=== PATIENT | female | born 1940 | race Caucasian/White ===

== ENCOUNTER 2017-05-31 08:00 | Outpatient (CLI) | payer MEDICARE, OTHER ==
[2017-05-31 13:16] LABS: ALBUMIN 4.3 g/dL (3.2-5.5); ALBUMIN/GLOBULIN RATIO 1.2 (1.0-2.2); ALKALINE PHOSPHATASE 77 IU/L (42-121); ALT ALANINE AMINOTRANSFERASE 22 IU/L (10-60); AST ASPARTATE AMINOTRANSFERASE 30 IU/L (10-42); BILIRUBIN,TOTAL 0.7 mg/dL (0.2-1.0); BUN - BLOOD UREA NITROGEN 18 mg/dL (6-20); CARBON DIOXIDE - CO2 27 mmol/L (21-32); CHLORIDE 105 mmol/L (101-111); CHOL/HDL RATIO 3.3 (<4.4); CHOLESTEROL 211 mg/dL; CREATININE 0.7 mg/dL (0.4-1.0); GFR - MDRD 81 (>89); GLUCOSE 98 mg/dL (70-100); HDL CHOLESTEROL 64 mg/dL; LDL CHOLESTEROL,CALCULATED 119 mg/dL; LDL/HDL RATIO 1.9 (<4.4); SODIUM 140 mmol/L (135-145); TOTAL PROTEIN 7.8 g/dL (6.7-8.2); VLDL CHOLESTEROL 28 mg/dL
== END 2017-05-31 08:01 | disposition home or self-care (01) ==
LOC: LAB.WCP 08:00
PROVIDERS: ATTEND Family Medicine
DX: E78.5 Hyperlipidemia, unspecified (principal); E03.9 Hypothyroidism, unspecified
CPT/HCPCS: 36415; 80053; 80061; 83721; 84443

== ENCOUNTER 2017-07-10 08:00 | Outpatient (CLI) | payer MEDICARE, OTHER ==
[2017-07-10 19:26] LABS: THYROID STIMULATING HORMONE 4.12 uIU/mL (0.34-5.60)
[2017-07-10 19:27] LABS: FREE T4 (FREE THYROXINE) 1.03 ng/dL (0.58-1.64)
[2017-07-11 12:00] LABS: CALCIUM 9.1 mg/dL (8.5-10.3); CREATININE 0.7 mg/dL (0.4-1.0)
== END 2017-07-10 08:01 | disposition home or self-care (01) ==
LOC: LAB.WCP 08:00
PROVIDERS: ATTEND Family Medicine
DX: E03.9 Hypothyroidism, unspecified (principal); I10 Essential (primary) hypertension
CPT/HCPCS: 36415; 80048; 84439; 84443; 84481

== ENCOUNTER 2017-08-29 08:00 | Outpatient (CLI) | payer MEDICARE, OTHER ==
[2017-08-29 19:06] LABS: BASOPHILS # (AUTO) 0.1 10^3/uL (0.0-0.1); BASOPHILS % (AUTO) 0.8 %; EOSINOPHILS # (AUTO) 0.1 10^3/uL (0.0-0.7); EOSINOPHILS % (AUTO) 1.8 %; HGB - HEMOGLOBIN 12.8 g/dL (12.0-16.0); LYMPHOCYTES # (AUTO) 2.2 10^3/uL (1.5-3.5); LYMPHOCYTES % (AUTO) 33.8 %; MEAN CORPUSCULAR HEMOGLOBIN 29.9 pg (27.0-31.0); MEAN CORPUSCULAR HGB CONC 32.6 g/dL (32.0-36.0); MEAN CORPUSCULAR VOLUME 91.6 fL (81.0-99.0); MEAN PLATELET VOLUME 9.8 fL (7.9-10.8); MONOCYTES # (AUTO) 0.6 10^3/uL (0.0-1.0); MONOCYTES % (AUTO) 8.6 %; NEUTROPHILS # (AUTO) 3.5 10^3/uL (1.5-6.6); PLT - PLATELET COUNT 186 10^3/uL (130-450); RED BLOOD COUNT 4.28 10^6/uL (4.20-5.40); RED CELL DISTRIBUTION WIDTH 14.1 % (12.0-15.0); WHITE BLOOD COUNT 6.4 x10^3/uL (4.8-10.8)
[2017-08-29 19:16] LABS: BILIRUBIN,URINE NEGATIVE (NEGATIVE); GLUCOSE, URINE (UA) NEGATIVE (NEGATIVE); KETONES,URINE (UA) NEGATIVE (NEGATIVE); LEUKOCYTE ESTERASE, URINE NEGATIVE (NEGATIVE); NITRITE,URINE NEGATIVE (NEGATIVE); OCCULT BLOOD,URINE NEGATIVE (NEGATIVE); PROTEIN,URINE NEGATIVE (NEGATIVE); UROBILINOGEN,URINE 0.2 (NORMAL) E.U./dL (NORMAL)
[2017-08-29 19:19] LABS: CLARITY,URINE CLEAR (CLEAR)
[2017-08-29 19:52] LABS: BACTERIA,URINE Rare /HPF (None Seen); RBC,URINE 0-5 /HPF (0-5); SQUAMOUS EPITHELIAL CELL,UR MOD Squamous (<= Few)
== END 2017-08-29 08:01 ==
LOC: LAB.WCP 08:00
PROVIDERS: ATTEND Internal Medicine Rheumatology
DX: M35.9 Systemic involvement of connective tissue, unspecified (principal); M06.4 Inflammatory polyarthropathy
CPT/HCPCS: 36415; 81001; 85025; 85651; 86140

== ENCOUNTER 2018-08-27 10:47 | Outpatient (CLI) | payer MEDICARE, OTHER ==
[2018-08-27 18:58] LABS: BASOPHILS % (AUTO) 0.9 %; EOSINOPHILS # (AUTO) 0.1 10^3/uL (0.0-0.7); EOSINOPHILS % (AUTO) 2.6 %; HGB - HEMOGLOBIN 13.1 g/dL (12.0-16.0); LYMPHOCYTES # (AUTO) 1.9 10^3/uL (1.5-3.5); LYMPHOCYTES % (AUTO) 36.3 %; MEAN CORPUSCULAR HEMOGLOBIN 30.5 pg (27.0-31.0); MEAN CORPUSCULAR HGB CONC 33.1 g/dL (32.0-36.0); MEAN PLATELET VOLUME 9.5 fL (7.9-10.8); MONOCYTES # (AUTO) 0.5 10^3/uL (0.0-1.0); MONOCYTES % (AUTO) 9.1 %; NEUTROPHILS # (AUTO) 2.7 10^3/uL (1.5-6.6); NEUTROPHILS % (AUTO) 51.1 %; PLT - PLATELET COUNT 217 10^3/uL (130-450); RED BLOOD COUNT 4.29 10^6/uL (4.20-5.40); RED CELL DISTRIBUTION WIDTH 14.5 % (12.0-15.0); WHITE BLOOD COUNT 5.2 x10^3/uL (4.8-10.8)
[2018-08-27 19:21] LABS: ALBUMIN 4.2 g/dL (3.2-5.5); ALBUMIN/GLOBULIN RATIO 1.6 (1.0-2.2); ALKALINE PHOSPHATASE 54 IU/L (42-121); ALT ALANINE AMINOTRANSFERASE 15 IU/L (10-60); AST ASPARTATE AMINOTRANSFERASE 27 IU/L (10-42); BILIRUBIN,TOTAL 0.8 mg/dL (0.2-1.0); BUN - BLOOD UREA NITROGEN 14 mg/dL (6-20); CARBON DIOXIDE - CO2 25 mmol/L (21-32); CHLORIDE 99 mmol/L (101-111); CHOL/HDL RATIO 3.4 (<4.4); CHOLESTEROL 196 mg/dL; CREATININE 0.7 mg/dL (0.4-1.0); GFR - MDRD 81 (>89); GLUCOSE 98 mg/dL (70-100); HDL CHOLESTEROL 58 mg/dL; LDL CHOLESTEROL,CALCULATED 118 mg/dL; SODIUM 137 mmol/L (135-145); TOTAL PROTEIN 6.9 g/dL (6.7-8.2); VLDL CHOLESTEROL 20 mg/dL
[2018-08-27 19:26] LABS: HB2 TOTAL 13.3 g/dL; HEMOGLOBIN A1C 0.44 g/dL; HEMOGLOBIN A1C % 5.2 % (4.6-6.2)
== END 2018-08-27 10:48 | disposition home or self-care (01) ==
LOC: LAB.WCP 10:47
PROVIDERS: ATTEND Family Medicine
DX: I10 Essential (primary) hypertension (principal); R73.09 Other abnormal glucose; E78.5 Hyperlipidemia, unspecified; E03.9 Hypothyroidism, unspecified
CPT/HCPCS: 36415; 80053; 80061; 83036; 83721; 84443; 85025

== ENCOUNTER 2018-10-15 08:00 | Outpatient (CLI) | payer MEDICARE, OTHER ==
[2018-10-15 18:59] LABS: BASOPHILS # (AUTO) 0.1 10^3/uL (0.0-0.1); BASOPHILS % (AUTO) 1.2 %; EOSINOPHILS # (AUTO) 0.2 10^3/uL (0.0-0.7); EOSINOPHILS % (AUTO) 3.9 %; HGB - HEMOGLOBIN 12.5 g/dL (12.0-16.0); LYMPHOCYTES # (AUTO) 1.6 10^3/uL (1.5-3.5); LYMPHOCYTES % (AUTO) 28.2 %; MEAN CORPUSCULAR HEMOGLOBIN 30.4 pg (27.0-31.0); MEAN CORPUSCULAR HGB CONC 31.6 g/dL (32.0-36.0); MEAN CORPUSCULAR VOLUME 96.4 fL (81.0-99.0); MEAN PLATELET VOLUME 11.7 fL (7.9-10.8); MONOCYTES # (AUTO) 0.5 10^3/uL (0.0-1.0); MONOCYTES % (AUTO) 8.4 %; NEUTROPHILS # (AUTO) 3.3 10^3/uL (1.5-6.6); NEUTROPHILS % (AUTO) 57.8 %; PLT - PLATELET COUNT 184 10^3/uL (130-450); RED BLOOD COUNT 4.11 10^6/uL (4.20-5.40); RED CELL DISTRIBUTION WIDTH 13.7 % (12.0-15.0); WHITE BLOOD COUNT 5.7 x10^3/uL (4.8-10.8)
[2018-10-15 19:27] LABS: ALBUMIN 4.2 g/dL (3.2-5.5); ALBUMIN/GLOBULIN RATIO 1.4 (1.0-2.2); BILIRUBIN,TOTAL 0.8 mg/dL (0.2-1.0); CALCIUM 9.1 mg/dL (8.5-10.3); CREATININE 0.7 mg/dL (0.4-1.0); TOTAL PROTEIN 7.3 g/dL (6.7-8.2)
== END 2018-10-15 23:59 | disposition home or self-care (01) ==
LOC: LAB.WCP 08:00
PROVIDERS: ATTEND Internal Medicine Rheumatology
DX: M35.9 Systemic involvement of connective tissue, unspecified (principal); M06.4 Inflammatory polyarthropathy
CPT/HCPCS: 36415; 80053; 85025; 85651

== ENCOUNTER 2020-03-21 08:00 | Outpatient (CLI) | payer MEDICARE, OTHER ==
[2020-03-21 18:07] LABS: BASOPHILS % (AUTO) 0.6 %; EOSINOPHILS # (AUTO) 0.1 10^3/uL (0.0-0.7); EOSINOPHILS % (AUTO) 1.5 %; HGB - HEMOGLOBIN 13.2 g/dL (12.0-16.0); LYMPHOCYTES # (AUTO) 1.9 10^3/uL (1.5-3.5); LYMPHOCYTES % (AUTO) 28.9 %; MEAN CORPUSCULAR HEMOGLOBIN 31.1 pg (27.0-31.0); MEAN CORPUSCULAR HGB CONC 33.2 g/dL (32.0-36.0); MEAN CORPUSCULAR VOLUME 93.6 fL (81.0-99.0); MEAN PLATELET VOLUME 11.1 fL (7.9-10.8); MONOCYTES # (AUTO) 0.6 10^3/uL (0.0-1.0); MONOCYTES % (AUTO) 9.6 %; NEUTROPHILS # (AUTO) 3.9 10^3/uL (1.5-6.6); NEUTROPHILS % (AUTO) 58.8 %; PLT - PLATELET COUNT 210 10^3/uL (130-450); RED BLOOD COUNT 4.25 10^6/uL (4.20-5.40); RED CELL DISTRIBUTION WIDTH 12.9 % (12.0-15.0); WHITE BLOOD COUNT 6.7 x10^3/uL (4.8-10.8)
[2020-03-21 19:11] LABS: ALBUMIN 4.6 g/dL (3.2-5.5); ALBUMIN/GLOBULIN RATIO 1.5 (1.0-2.2); ALKALINE PHOSPHATASE 62 IU/L (42-121); ALT ALANINE AMINOTRANSFERASE 18 IU/L (10-60); AST ASPARTATE AMINOTRANSFERASE 26 IU/L (10-42); BILIRUBIN,TOTAL 0.8 mg/dL (0.2-1.0); BUN - BLOOD UREA NITROGEN 21 mg/dL (6-20); CALCIUM 9.6 mg/dL (8.5-10.3); CARBON DIOXIDE - CO2 25 mmol/L (21-32); CHLORIDE 102 mmol/L (101-111); CHOL/HDL RATIO 3.6 (<4.4); CHOLESTEROL 230 mg/dL; CREATININE 0.9 mg/dL (0.4-1.0); GLUCOSE 87 mg/dL (70-100); HDL CHOLESTEROL 64 mg/dL; LDL CHOLESTEROL,CALCULATED 144 mg/dL; LDL/HDL RATIO 2.3 (<4.4); SODIUM 139 mmol/L (135-145); TOTAL PROTEIN 7.7 g/dL (6.7-8.2); VLDL CHOLESTEROL 22 mg/dL
[2020-03-21 20:08] LABS: HEMOGLOBIN A1c% 5.4 % (4.27-6.07)
== END 2020-03-21 23:59 | disposition home or self-care (01) ==
LOC: LAB.WCP 08:00
PROVIDERS: ATTEND Nurse Practitioner
DX: I10 Essential (primary) hypertension (principal); R73.09 Other abnormal glucose; E03.9 Hypothyroidism, unspecified; E78.5 Hyperlipidemia, unspecified
CPT/HCPCS: 36415; 80053; 80061; 83036; 83721; 84443; 85025

== ENCOUNTER 2020-07-19 09:27 | Outpatient (CLI) | payer MEDICARE, OTHER ==
--- NOTE | 2020-07-19 12:01 | Mammography Report ---
BILATERAL DIGITAL SCREENING MAMMOGRAM 3D/2D: 07/19/2020 CLINICAL: Routine screening. Comparison is made to exams dated: 12/15/2014 mammogram, 06/02/2012 mammogram, 04/18/2011 mammogram, a nd 01/30/2010 mammogram - [facility]. The tissue of both breasts is predominantly fatty. There are benign vascular calcifications in both breasts. No significant masses, calcifications, or other findings are seen in either breast. There has been no significant interval change. IMPRESSION: BENIGN There is no mammographic evidence of malignancy. A 1 year screening mammogram is recommended. This exam was interpreted at Station ID: [id number]. NOTE: For mammograms, a report in lay terms will be sent to the patient. Approximately 15% of breast malignancies will not be visualized mammographically. In the management of a palpable breast mass, a negative mammogram must not discourage biopsy of a clinically suspicious lesion. Electronically Signed By: Jelani Mcclellan acr/penrad:07/19/2020 10:11:37 ACR BI-RADS Category 2: Benign Finding(s) 3342F PARENCHYMAL PATTERN: (F) - The breast(s) demonstrate(s) diffuse fatty replacement. BI-RADS CATEGORY: (2) - 2 RECOMMENDATION: (ANNUAL) - Recommend routine annual screening mammography. [id number] 1 year screening LATERALITY: (B)
== END 2020-07-19 09:28 | disposition home or self-care (01) ==
LOC: DI.N 09:27
PROVIDERS: ATTEND Nurse Practitioner
DX: Z12.31 Encounter for screening mammogram for malignant neoplasm of breast (principal)

== ENCOUNTER 2021-06-30 09:59 | Outpatient (CLI) | payer MEDICARE, OTHER ==
[2021-06-30 12:04] LABS: BASOPHILS # (AUTO) 0.1 10^3/uL (0.0-0.1); BASOPHILS % (AUTO) 0.8 %; EOSINOPHILS # (AUTO) 0.1 10^3/uL (0.0-0.7); EOSINOPHILS % (AUTO) 1.5 %; HCT - HEMATOCRIT 38.8 % (37.0-47.0); HGB - HEMOGLOBIN 13.1 g/dL (12.0-16.0); LYMPHOCYTES # (AUTO) 2.5 10^3/uL (1.5-3.5); LYMPHOCYTES % (AUTO) 38.3 %; MEAN CORPUSCULAR HEMOGLOBIN 31.3 pg (27.0-31.0); MEAN CORPUSCULAR HGB CONC 33.8 g/dL (32.0-36.0); MEAN CORPUSCULAR VOLUME 92.6 fL (81.0-99.0); MEAN PLATELET VOLUME 10.3 fL (7.9-10.8); MONOCYTES # (AUTO) 0.6 10^3/uL (0.0-1.0); MONOCYTES % (AUTO) 9.4 %; NEUTROPHILS # (AUTO) 3.2 10^3/uL (1.5-6.6); NEUTROPHILS % (AUTO) 49.4 %; PLT - PLATELET COUNT 218 10^3/uL (130-450); RED BLOOD COUNT 4.19 10^6/uL (4.20-5.40); WHITE BLOOD COUNT 6.5 x10^3/uL (4.8-10.8)
[2021-06-30 12:09] LABS: ESTIMATED AVERAGE GLUCOSE 108 mg/dL (70-100); HEMOGLOBIN A1c% 5.4 % (4.27-6.07)
[2021-06-30 12:25] LABS: ALBUMIN 4.5 g/dL (3.2-5.5); ALBUMIN/GLOBULIN RATIO 1.6 (1.0-2.2); ALKALINE PHOSPHATASE 66 IU/L (42-121); ALT ALANINE AMINOTRANSFERASE 16 IU/L (10-60); AST ASPARTATE AMINOTRANSFERASE 25 IU/L (10-42); BILIRUBIN,TOTAL 0.7 mg/dL (0.2-1.0); BUN - BLOOD UREA NITROGEN 18 mg/dL (6-20); CALCIUM 9.2 mg/dL (8.5-10.3); CARBON DIOXIDE - CO2 25 mmol/L (21-32); CHLORIDE 97 mmol/L (101-111); CHOL/HDL RATIO 4.2 (<4.4); CHOLESTEROL 250 mg/dL; CREATININE 0.9 mg/dL (0.4-1.0); GFR - MDRD 60 (>89); GLUCOSE 99 mg/dL (70-100); HDL CHOLESTEROL 60 mg/dL; LDL CHOLESTEROL,CALCULATED 159 mg/dL; LDL/HDL RATIO 2.7 (<4.4); SODIUM 134 mmol/L (135-145); TOTAL PROTEIN 7.4 g/dL (6.7-8.2); TRIGLYCERIDES 156 mg/dL; VLDL CHOLESTEROL 31 mg/dL
[2021-06-30 12:37] LABS: THYROID STIMULATING HORMONE 4.88 uIU/mL (0.34-5.60)
[2021-06-30 12:38] LABS: FREE T3 3.25 pg/mL (2.5-3.9)
[2021-06-30 12:39] LABS: FREE T4 (FREE THYROXINE) 0.87 ng/dL (0.58-1.64)
== END 2021-06-30 10:00 | disposition home or self-care (01) ==
LOC: LAB.N 09:59
PROVIDERS: ATTEND Family Medicine
DX: I10 Essential (primary) hypertension (principal); I09.9 Rheumatic heart disease, unspecified; I34.0 Nonrheumatic mitral (valve) insufficiency; I35.8 Other nonrheumatic aortic valve disorders; E03.9 Hypothyroidism, unspecified; E78.5 Hyperlipidemia, unspecified
CPT/HCPCS: 36415; 80053; 80061; 83036; 83721; 84439; 84443; 84481; 85025

== ENCOUNTER 2023-06-03 12:45 | Outpatient (CLI) | payer MEDICARE, OTHER | END 2023-06-03 13:00 | disposition home or self-care (01) | LOC: LAB.N 12:45 | PROVIDERS: ATTEND Physician Assistant Medical | DX: R30.0 Dysuria (principal) | CPT/HCPCS: 87077; 87086; 87181 ==

== ENCOUNTER 2023-12-31 10:42 | Outpatient (CLI) | payer MEDICARE, OTHER ==
[2023-12-31 12:01] LABS: BASOPHILS # (AUTO) 0.1 10^3/uL (0.0-0.1); BASOPHILS % (AUTO) 0.8 %; EOSINOPHILS # (AUTO) 0.1 10^3/uL (0.0-0.7); EOSINOPHILS % (AUTO) 1.7 %; HCT - HEMATOCRIT 37.7 % (37.0-47.0); HGB - HEMOGLOBIN 12.3 g/dL (12.0-16.0); LYMPHOCYTES # (AUTO) 2.2 10^3/uL (1.5-3.5); LYMPHOCYTES % (AUTO) 33.3 %; MEAN CORPUSCULAR HEMOGLOBIN 30.9 pg (27.0-31.0); MEAN CORPUSCULAR HGB CONC 32.6 g/dL (32.0-36.0); MEAN CORPUSCULAR VOLUME 94.7 fL (81.0-99.0); MEAN PLATELET VOLUME 11.3 fL (7.9-10.8); MONOCYTES # (AUTO) 0.6 10^3/uL (0.0-1.0); MONOCYTES % (AUTO) 8.9 %; NEUTROPHILS # (AUTO) 3.6 10^3/uL (1.5-6.6); PLT - PLATELET COUNT 198 10^3/uL (130-450); RED BLOOD COUNT 3.98 10^6/uL (4.20-5.40); RED CELL DISTRIBUTION WIDTH 13.2 % (12.0-15.0); WHITE BLOOD COUNT 6.6 x10^3/uL (4.8-10.8)
[2023-12-31 12:17] LABS: ALBUMIN 4.4 g/dL (3.2-5.5); ALBUMIN/GLOBULIN RATIO 1.8 (1.0-2.2); ALKALINE PHOSPHATASE 60 IU/L (42-121); ALT ALANINE AMINOTRANSFERASE 10 IU/L (10-60); AST ASPARTATE AMINOTRANSFERASE 17 IU/L (10-42); BILIRUBIN,TOTAL 0.7 mg/dL (0.2-1.0); BUN - BLOOD UREA NITROGEN 18 mg/dL (6-20); CALCIUM 9.4 mg/dL (8.5-10.3); CARBON DIOXIDE - CO2 27 mmol/L (21-32); CHLORIDE 103 mmol/L (101-111); CHOL/HDL RATIO 4.2 (<4.4); CHOLESTEROL 234 mg/dL; CREATININE 0.7 mg/dL (0.6-1.3); GFR - MDRD 80 (>89); GLUCOSE 109 mg/dL (74-104); HDL CHOLESTEROL 56 mg/dL; LDL CHOLESTEROL,CALCULATED 138 mg/dL; LDL/HDL RATIO 2.5 (<4.4); POTASSIUM 4.1 mmol/L (3.5-4.5); SODIUM 137 mmol/L (135-145); TOTAL PROTEIN 6.9 g/dL (6.4-8.9); TRIGLYCERIDES 198 mg/dL; VLDL CHOLESTEROL 40 mg/dL
[2023-12-31 12:23] LABS: ESTIMATED AVERAGE GLUCOSE 97 mg/dL (70-100)
[2023-12-31 12:27] LABS: THYROID STIMULATING HORMONE 3.49 uIU/mL (0.34-5.60)
== END 2023-12-31 10:43 | disposition home or self-care (01) ==
LOC: LAB.N 10:42
PROVIDERS: ATTEND Family Medicine
DX: I10 Essential (primary) hypertension (principal); I35.0 Nonrheumatic aortic (valve) stenosis; K21.9 Gastro-esophageal reflux disease without esophagitis; M34.9 Systemic sclerosis, unspecified; K13.0 Diseases of lips; R73.03 Prediabetes; E03.9 Hypothyroidism, unspecified; E78.5 Hyperlipidemia, unspecified; N30.00 Acute cystitis without hematuria
CPT/HCPCS: 36415; 80053; 80061; 83036; 83721; 84443; 85025; 87086

== ENCOUNTER 2024-01-07 08:00 | Outpatient (CLI) | payer MEDICARE, OTHER | END 2024-01-07 23:59 | disposition home or self-care (01) | LOC: LAB 08:00 | PROVIDERS: ATTEND Family Medicine | DX: R35.0 Frequency of micturition (principal) | CPT/HCPCS: 87086 ==